=== PATIENT | female | born 1960 | race Caucasian/White ===

== ENCOUNTER → 2016-11-03 | Outpatient (CLI) | payer OTHER ==
[~2016-11-03] MED LIST: AUGMENTIN 875875 MG PO; CITRACAL + BON1 EACH PO; COLACE100 MG PO; CULTURELLE KID1 EAC1 PO; FISH OIL 1,0001 EAC5 PO; FLAGYL500 MG PO; HYDROCODONE-AP1 EAC6 PO; IBUPROFEN 800800 M1 PO; LORTAB 5 MG/5001 TA1 PO; MULTIVITAMINS PO; ONDANSETRON HCL4 M2 PO; SENNA S TABLET1 EACH PO; SENNA-S TABLET1 EACH PO; ZOCOR40 MG PO; ZYRTEC10 M2 PO; [UNRECOGNIZED DRUG - OTHER] PO; [UNRECOGNIZED DRUG - OTHER] PO
== END ==
LOC: RAD 04:09
DX: Z12.31 Encounter for screening mammogram for malignant neoplasm of breast (principal)

== ENCOUNTER → 2016-11-21 | Outpatient (CLI) | payer OTHER ==
[2016-11-21 10:51] LABS: ABSOLUTE NEUTROPHILS 2.4 thou/uL (1.4-8.2); BASOPHILS 0.5 % (0.0-2.0); EOSINOPHILS 3.6 % (0.0-3.0); HEMATOCRIT 42.1 % (37.0-47.0); HEMOGLOBIN 14.2 gm/dL (12.0-15.0); LYMPHOCYTES 27.6 % (24.0-44.0); MCHC 33.7 g/dL (28.0-37.0); MCV 91.8 fL (80.0-100.0); MONOCYTES 8.1 % (1.0-8.0); PLATELET COUNT 198 thou/uL (150-400); POLYS 60.2 % (36.0-66.0); RBC 4.59 mil/uL (4.20-5.00); RDW 14.3 % (10.5-14.5)
[2016-11-21 10:56] LABS: MANUAL DIFF NO
[2016-11-21 10:59] LABS: ALBUMIN 3.4 g/dL (3.4-5.0); ALKALINE PHOSPHATASE 83 U/L (46-116); ANION GAP 6 mmol/L (7-16); BUN 13 mg/dL (7-18); CALCIUM 8.8 mg/dL (8.5-10.1); CHLORIDE 106 mmol/L (98-107); CHOLESTEROL 199 mg/dL (<200); CO2 30 mmol/L (21-32); CREATININE 0.7 mg/dL (0.6-1.0); GLUCOSE 99 mg/dL (74-106); HDL CHOLESTEROL 60 mg/dL (>40); LDL CHOLESTEROL 126 mg/dL (<100); SGOT 24 U/L (15-37); SGPT 28 U/L (30-65); SODIUM 142 mmol/L (136-145); TC:HDL 3.3 Ratio (Not establshd); TOTAL BILIRUBIN 1.2 mg/dL (<0.1-1.0); TOTAL PROTEIN 6.5 g/dL (6.4-8.2); TRIGLYCERIDE 67 mg/dL (<150); VLDL 13 mg/dL (<40)
[2016-11-21 19:08] LABS: FREE T4 1.25 ng/dL (0.82-1.77)
[2016-11-22 01:07] LABS: GLYCOHEMOGLOBIN (HGB A1C) 4.8 % (4.8-5.6)
== END ==
LOC: LABMALL 10:03
DX: E78.5 Hyperlipidemia, unspecified (principal); E66.01 Morbid (severe) obesity due to excess calories; R73.03 Prediabetes

== ENCOUNTER → 2016-11-26 | Outpatient (CLI) | payer OTHER ==
--- NOTE | ~2016-11-26 | EKG ---
[address] [place] [address] ELECTROCARDIOGRAM REPORT Name: PATITO HAINESN Room #: REG [id number]: 11/26/16 Attend Phys: Physician not on staff Discharge: Date of : 62 Report #: [id number] THIS REPORT FOR: //name// [facility] Test Date: 2016-11-26 Test Time: 12:32:29 Pat Name: PATITO HAINES Department: Room: Gender: F Process Improvement Analyst: Wai HORNER : 1960 Requested By: Physician staff Order Number: [id number] MD: Markos Medina Measurements Intervals [place] Rate: 62 P: 44 KS: 166 QRS: -24 QRSD: 90 T: 46 QT: 385 QTc: 391 Interpretive Statements Sinus rhythm No significant abnormality No previous ECG available for comparison Electronically Signed On 11-26-2016 18:30:05 CDT by Markos Medina [email or web address] <ELECTRONICALLY SIGNED> By: Markos Medina MD, [facility] 11/26/16 1830 1232 1232 Markos Medina MD, FACC /EPI
== END ==
LOC: RAD 11:48
DX: E78.5 Hyperlipidemia, unspecified (principal)

== ENCOUNTER → 2018-04-02 | Outpatient (CLI) | payer OTHER | LOC: RAD 13:06 | DX: Z12.31 Encounter for screening mammogram for malignant neoplasm of breast (principal) ==

== ENCOUNTER → 2018-04-02 | Outpatient (CLI) | payer OTHER | LOC: CAT 11:50 | DX: Z13.6 Encounter for screening for cardiovascular disorders (principal); E78.00 Pure hypercholesterolemia, unspecified ==

== ENCOUNTER → 2018-04-05 | Outpatient (CLI) | payer OTHER | LOC: NUC 09:51 | DX: M85.89 Other specified disorders of bone density and structure, multiple sites (principal); Z78.0 Asymptomatic menopausal state ==